=== PATIENT | male | born 1965 | race Caucasian/White ===

== ENCOUNTER 2017-05-21 15:41 | Emergency (ER) | payer SELFPAY ==
[2017-05-21 16:36] LABS: BASOPHILS 1.8 % (0-2); EOSINOPHILS 4.8 % (0-7); HEMATOCRIT 28.3 % (42.0-54.0); IMMATURE GRANULOCYTES 0.2 % (0-5); MCH 22.7 pg (26.0-34.0); MCHC 31.1 g/dL (31.0-37.0); MCV 73.1 fL (80.0-100.0); MEAN PLATELET VOLUME 9.4 fL (7.4-10.4); MONOCYTES 7.2 % (2-11); PLATELET COUNT 275 10x3/uL (130-400); RBC 3.87 10x6/uL (4.20-6.10); RDW 21.2 % (11.5-14.5)
[2017-05-21 16:44] LABS: HEMOGLOBIN 8.8 g/dL (13.5-17.5)
[2017-05-21 16:55] LABS: APPEARANCE CLEAR (CLEAR); BILIRUBIN NEGATIVE (NEGATIVE); COLOR YELLOW (YELLOW); GLUCOSE NEGATIVE (NEGATIVE); KETONE NEGATIVE (NEGATIVE); NITRITE NEGATIVE (NEGATIVE); PROTEIN NEGATIVE (NEGATIVE); SPECIFIC GRAVITY 1.005 (1.005-1.020); UDS - AMPHET NEGATIVE QUAL (NEGATIVE); UDS - BARB NEGATIVE QUAL (NEGATIVE); UDS - BENZO NEGATIVE QUAL (NEGATIVE); UDS - COCAINE NEGATIVE QUAL (NEGATIVE); UDS - OPIATE NEGATIVE QUAL (NEGATIVE); UDS - PCP NEGATIVE QUAL (NEGATIVE); UDS - THC NEGATIVE QUAL (NEGATIVE); UROBILINOGEN NORMAL (NORMAL)
[2017-05-21 16:59] LABS: ALBUMIN 3.3 g/dL (3.4-5.0); ALKALINE PHOSPHATASE 59 U/L (46-116); ALT (SGPT) 28 U/L (10-68); BILIRUBIN - TOTAL 0.18 mg/dL (0.2-1.3); CALC OSMOLALITY 279 mosm/kg (275-300); CALCIUM 8.4 mg/dL (8.5-10.1); CHLORIDE - SERUM 104 mmol/L (98-107); CREATININE - SERUM 0.7 mg/dL (0.6-1.3); GLUCOSE 81 mg/dL (74-106); POTASSIUM - SERUM 3.5 mmol/L (3.5-5.1); PROTEIN - SERUM 6.4 g/dL (6.4-8.2); SODIUM 142 mmol/L (136-145); UREA NITROGEN 8 mg/dL (7-18); eGFR NON AFRICAN AMERICAN > 90 mL/min (90-120)
[2017-05-22 01:11] LABS: HEMATOCRIT 28.3 % (42.0-54.0); HEMOGLOBIN 8.7 g/dL (13.5-17.5); LYMPHOCYTES 17.4 % (15-50); MCH 22.9 pg (26.0-34.0); MCHC 30.7 g/dL (31.0-37.0); MCV 74.5 fL (80.0-100.0); MEAN PLATELET VOLUME 8.4 fL (7.4-10.4); NEUTROPHILS 64.1 % (40-80); PLATELET COUNT 328 10x3/uL (130-400); RDW 21.8 % (11.5-14.5); WBC 5.3 10x3/uL (4.8-10.8)
== END 2017-05-22 05:53 | disposition short-term general hospital (02) ==
LOC: D.ER 15:41
PROVIDERS: Nurse Practitioner Family
DX: F33.9 Major depressive disorder, recurrent, unspecified (principal); R45.851 Suicidal ideations; F41.9 Anxiety disorder, unspecified; F10.10 Alcohol abuse, uncomplicated; D50.9 Iron deficiency anemia, unspecified

== ENCOUNTER 2017-08-19 14:58 | Emergency (ER) | payer MEDICAID ==
[2017-08-19 15:33] LABS: APPEARANCE CLEAR (CLEAR); BILIRUBIN NEGATIVE (NEGATIVE); COLOR YELLOW (YELLOW); GLUCOSE NEGATIVE (NEGATIVE); KETONE NEGATIVE (NEGATIVE); NITRITE NEGATIVE (NEGATIVE); PH 5.5 (5.0-6.0); PROTEIN NEGATIVE (NEGATIVE); SPECIFIC GRAVITY 1.015 (1.005-1.020); UROBILINOGEN NORMAL (NORMAL)
[2017-08-19 15:36] LABS: UDS - AMPHET NEGATIVE QUAL (NEGATIVE); UDS - BARB NEGATIVE QUAL (NEGATIVE); UDS - BENZO POSITIVE QUAL (NEGATIVE); UDS - COCAINE NEGATIVE QUAL (NEGATIVE); UDS - OPIATE POSITIVE QUAL (NEGATIVE); UDS - PCP NEGATIVE QUAL (NEGATIVE); UDS - THC NEGATIVE QUAL (NEGATIVE)
[2017-08-19 15:38] LABS: BASOPHILS 3.5 % (0-2); EOSINOPHILS 8.1 % (0-7); HEMATOCRIT 32.1 % (42.0-54.0); IMMATURE GRANULOCYTES 0.2 % (0-5); LYMPHOCYTES 27.9 % (15-50); MCH 23.8 pg (26.0-34.0); MCHC 31.2 g/dL (31.0-37.0); MCV 76.4 fL (80.0-100.0); MEAN PLATELET VOLUME 9.3 fL (7.4-10.4); MONOCYTES 9.6 % (2-11); NEUTROPHILS 50.7 % (40-80); PLATELET COUNT 343 10x3/uL (130-400); RDW 20.1 % (11.5-14.5); WBC 5.2 10x3/uL (4.8-10.8)
[2017-08-19 16:02] LABS: ALBUMIN 3.8 g/dL (3.4-5.0); ALKALINE PHOSPHATASE 77 U/L (46-116); ALT (SGPT) 34 U/L (10-68); BILIRUBIN - TOTAL 0.26 mg/dL (0.2-1.3); CALC OSMOLALITY 281 mosm/kg (275-300); CALCIUM 8.7 mg/dL (8.5-10.1); CARBON DIOXIDE 27.1 mmol/L (21.0-32.0); CHLORIDE - SERUM 105 mmol/L (98-107); CREATININE - SERUM 0.9 mg/dL (0.6-1.3); GLUCOSE 96 mg/dL (74-106); POTASSIUM - SERUM 3.7 mmol/L (3.5-5.1); PROTEIN - SERUM 7.4 g/dL (6.4-8.2); SODIUM 142 mmol/L (136-145); UREA NITROGEN 11 mg/dL (7-18); eGFR NON AFRICAN AMERICAN > 90 mL/min (90-120)
== END 2017-08-19 20:11 | disposition home or self-care (01) ==
LOC: D.ER 14:58
PROVIDERS: Emergency Medicine
DX: Z86.59 Personal history of other mental and behavioral disorders (principal); F33.9 Major depressive disorder, recurrent, unspecified; F10.129 Alcohol abuse with intoxication, unspecified; D64.9 Anemia, unspecified; F17.200 Nicotine dependence, unspecified, uncomplicated

== ENCOUNTER 2017-12-20 13:54 | Emergency (ER) | payer MEDICAID ==
[~2017-12-20] VITALS: Ht 172.7 cm; Wt 86.4 kg
[2017-12-20 14:04] VITALS: BP 119/74; Ht 172.7 cm; Wt 86.4 kg
[2017-12-20 14:24] LABS: EOSINOPHILS 4.8 % (0-7); HEMOGLOBIN 8.8 g/dL (13.5-17.5); IMMATURE GRANULOCYTES 0.2 % (0-5); MCHC 31.4 g/dL (31.0-37.0); MCV 73.3 fL (80.0-100.0); MEAN PLATELET VOLUME 9.6 fL (7.4-10.4); MONOCYTES 7.8 % (2-11); NEUTROPHILS 65.2 % (40-80); PLATELET COUNT 341 10x3/uL (130-400); RBC 3.82 10x6/uL (4.20-6.10); RDW 18.2 % (11.5-14.5)
[2017-12-20 14:41] LABS: ALBUMIN 3.6 g/dL (3.4-5.0); ALKALINE PHOSPHATASE 68 U/L (46-116); ALT (SGPT) 24 U/L (10-68); BILIRUBIN - TOTAL 0.47 mg/dL (0.2-1.3); CALC OSMOLALITY 275 mosm/kg (275-300); CALCIUM 9.2 mg/dL (8.5-10.1); CARBON DIOXIDE 27.4 mmol/L (21.0-32.0); CHLORIDE - SERUM 103 mmol/L (98-107); CREATININE - SERUM 0.8 mg/dL (0.6-1.3); GLUCOSE 104 mg/dL (74-106); POTASSIUM - SERUM 4.1 mmol/L (3.5-5.1); PROTEIN - SERUM 7.2 g/dL (6.4-8.2); SODIUM 138 mmol/L (136-145); UREA NITROGEN 12 mg/dL (7-18); eGFR NON AFRICAN AMERICAN > 90 mL/min (90-120)
== END 2017-12-20 17:30 | disposition home or self-care (01) ==
LOC: D.ER 13:54
PROVIDERS: Family Medicine
DX: R10.9 Unspecified abdominal pain (principal)

== ENCOUNTER 2018-10-23 18:53 | Inpatient (IN) | payer SELFPAY ==
[~2018-10-23] VITALS: Ht 172.7 cm; Wt 87.2 kg
[2018-10-23] VITALS (7 sets, daily range): BP systolic 96–116; BP diastolic 58–70
[2018-10-23] MEDS ORDERED: PEPCID (19:05)
[2018-10-23] MEDS ORDERED: CARAFATE1 G PO (19:05)
[2018-10-23] MEDS ORDERED: EFFEXOR75 MG (19:05)
--- NOTE | 2018-10-23 20:00 | NUR ---
PT SITTING UP ON STRETCHER, VITAL SIGNS STABLE AT THIS TIME. PT DENIES WANTING TO HARM HIMSELF AT THIS TIME, STATES HE IS DEPRESSED. DISCUSSED THAT WE NEEDED TO GET HIM MEDICALLY STABLE AND THAN HE WOULD HAVE DEPRESSION ADDRESSED, VERBALIZED UNDERSTANDING. PT IS WITHIN LINE OF SIGHT, DOORS OF ROOM OPENED, LIGHT IN ROOM ON.
[2018-10-23 20:16] LABS: BASOPHILS 1.8 % (0-2); EOSINOPHILS 7.5 % (0-7); HEMATOCRIT 26.3 % (42.0-54.0); HEMOGLOBIN 7.8 g/dL (13.5-17.5); IMMATURE GRANULOCYTES 0.1 % (0-5); LYMPHOCYTES 28.7 % (15-50); MCH 20.6 pg (26.0-34.0); MCHC 29.7 g/dL (31.0-37.0); MCV 69.4 fL (80.0-100.0); MEAN PLATELET VOLUME 10.3 fL (7.4-10.4); MONOCYTES 6.7 % (2-11); NEUTROPHILS 55.2 % (40-80); RBC 3.79 10x6/uL (4.20-6.10); RDW 23.1 % (11.5-14.5)
[2018-10-23 20:19] LABS: PLATELET COUNT 451 10x3/uL (130-400)
[2018-10-23 20:26] LABS: ALBUMIN 3.3 g/dL (3.4-5.0); ALKALINE PHOSPHATASE 131 U/L (46-116); ALT (SGPT) 19 U/L (10-68); CALC OSMOLALITY 292 mosm/kg (275-300); CALCIUM 8.1 mg/dL (8.5-10.1); CARBON DIOXIDE 25.4 mmol/L (21.0-32.0); CHLORIDE - SERUM 110 mmol/L (98-107); CREATININE - SERUM 0.8 mg/dL (0.6-1.3); GLUCOSE 87 mg/dL (74-106); MAGNESIUM - SERUM 2.5 mg/dL (1.8-2.4); POTASSIUM - SERUM 4.6 mmol/L (3.5-5.1); PROTEIN - SERUM 6.8 g/dL (6.4-8.2); SODIUM 148 mmol/L (136-145); UREA NITROGEN 12 mg/dL (7-18); eGFR NON AFRICAN AMERICAN > 90 mL/min (90-120)
--- NOTE | 2018-10-23 21:00 | NUR ---
PT RESTING QUIETLY, DENIES PAIN, STATES HE IS REALLY DEPRESSED, MD NOTIFIED.
[2018-10-23 21:26] LABS: APPEARANCE CLEAR (CLEAR); BILIRUBIN NEGATIVE (NEGATIVE); COLOR YELLOW (YELLOW); GLUCOSE NEGATIVE (NEGATIVE); KETONE NEGATIVE (NEGATIVE); NITRITE NEGATIVE (NEGATIVE); PROTEIN NEGATIVE (NEGATIVE); UROBILINOGEN NORMAL (NORMAL)
[2018-10-23 21:36] LABS: UDS - AMPHET NEGATIVE QUAL (NEGATIVE); UDS - BARB NEGATIVE QUAL (NEGATIVE); UDS - BENZO NEGATIVE QUAL (NEGATIVE); UDS - COCAINE NEGATIVE QUAL (NEGATIVE); UDS - OPIATE NEGATIVE QUAL (NEGATIVE); UDS - PCP NEGATIVE QUAL (NEGATIVE); UDS - THC NEGATIVE QUAL (NEGATIVE)
--- NOTE | 2018-10-23 22:02 | NUR ---
GUAC WAS NEGATIVE, REPEATED BY ANOTHER RN TO CONFIRM, NEGATIVE X 2.
--- NOTE | 2018-10-23 22:24 | NUR ---
CORRECTION SAYS THE GUAC IS SLIGHTLY POSITIVE.
[2018-10-24] VITALS (10 sets, daily range): BP systolic 112–152; BP diastolic 65–89; Ht 172.7 cm; Wt 87.2 kg
--- NOTE | 2018-10-24 00:30 | NUR ---
PATIENT IS BEING CLOSELY MONITORED, STATES HE DOESN'T WANT TO HARM HIMSELF, HE IS JUST VERY DEPRESSED. REPORT GIVEN TO VANNESSA MALDONADO.
--- NOTE | 2018-10-24 03:41 | NUR ---
PROTONIX DRIP RESTARTED, PATIENT MOOD PLEASANT. PATIENT STATES HE IS NOT CURRENTLY FEELING SUICIDAL BUT JUST FELT LIKE HE WAS IN A "VERY DARK PLACE WITH NO ONE TO TALK TO."
--- NOTE | 2018-10-24 07:14 | NUR ---
Pt report received at bedside from JOEL Morillo. Pt denies further needs at this time.
--- NOTE | 2018-10-24 08:52 | NUR ---
Pt resting in bed. Pt shows no signs of distress at this time. Pt denies further needs at this time.
[2018-10-24 09:02] LABS: EOSINOPHILS 7.6 % (0-7); HEMATOCRIT 27.5 % (42.0-54.0); HEMOGLOBIN 8.2 g/dL (13.5-17.5); IMMATURE GRANULOCYTES 0.1 % (0-5); LYMPHOCYTES 13.5 % (15-50); MCH 21.2 pg (26.0-34.0); MCHC 29.8 g/dL (31.0-37.0); MCV 71.1 fL (80.0-100.0); MEAN PLATELET VOLUME 9.4 fL (7.4-10.4); MONOCYTES 6.6 % (2-11); NEUTROPHILS 71.2 % (40-80); RBC 3.87 10x6/uL (4.20-6.10); RDW 22.7 % (11.5-14.5); WBC 7.3 10x3/uL (4.8-10.8)
[2018-10-24 09:05] LABS: PLATELET COUNT 343 10x3/uL (130-400)
[2018-10-24 09:18] LABS: % SATURATION 22 % (15-55); IRON 87 ug/dl (35-150); TOTAL IRON BIND CAPACITY 379 ug/dl (260-445); UNSAT IRON BIND CAPACITY 292 ug/dl (150-375)
[2018-10-24 09:19] LABS: APTT 26.2 SECONDS (22.8-39.4); INR 1.12 (0.85-1.17); PROTIME 13.9 SECONDS (11.6-15.0)
[2018-10-24 09:30] LABS: ALBUMIN 2.9 g/dL (3.4-5.0); ALKALINE PHOSPHATASE 129 U/L (46-116); ALT (SGPT) 15 U/L (10-68); BILIRUBIN - TOTAL 0.63 mg/dL (0.2-1.3); CALC OSMOLALITY 284 mosm/kg (275-300); CARBON DIOXIDE 26.5 mmol/L (21.0-32.0); CHLORIDE - SERUM 108 mmol/L (98-107); CREATININE - SERUM 0.7 mg/dL (0.6-1.3); FERRITIN 6 ng/mL (3-244); GLUCOSE 84 mg/dL (74-106); POTASSIUM - SERUM 4.1 mmol/L (3.5-5.1); PROTEIN - SERUM 6.9 g/dL (6.4-8.2); SODIUM 143 mmol/L (136-145); UREA NITROGEN 15 mg/dL (7-18); eGFR NON AFRICAN AMERICAN > 90 mL/min (90-120)
--- NOTE | 2018-10-24 10:03 | NUR ---
Pt resting in bed with eyes closed. Respirations even and unlabored. IV infusing without difficulty. Pt denies any needs.
--- NOTE | 2018-10-24 11:36 | NUR ---
Pt resting in bed. Pt shows no signs of distress.
--- NOTE | 2018-10-24 14:35 | NUR ---
PT ARRIVED ON UNIT VIA WHEELCHAIR, HOOKED TO MONITORS, ALERT AND ORIENTED, ALL PPP, VSS, CALL LIGHT IN REACH
--- NOTE | 2018-10-24 15:45 | NUR ---
DR. GUEVARA AT BEDSIDE, EGD PERFORMED, PT TOLERATED WELL
--- NOTE | 2018-10-24 19:15 | NUR ---
REC'D TO CARE, STREET PHOTOGRAPHER PER FLOWSHEET. PT ALERT AND ORIENTED. VSS. PT GIVEN FRESH WATER, DENIES OTHER NEEDS. ALARMS ON AND C/L IN REACH.
--- NOTE | 2018-10-24 21:00 | NUR ---
NO VISITORS, PT GIVEN SANDWICH TRAY PER REQUEST. VSS. WEANING FIO2 PER ORDERS. C/L IN REACH.
--- NOTE | 2018-10-24 23:30 | NUR ---
REASSESSMENT PER FLOWSHEET, NO ACUTE CHANGES. VSS. PT ON RA. DENIES NEEDS. C/L IN REACH.
[2018-10-25] VITALS (21 sets, daily range): BP systolic 117–156; BP diastolic 70–92
--- NOTE | 2018-10-25 01:15 | NUR ---
RESTING WITH EYES CLOSED, VSS. NO SIGN OF DISTRESS.
--- NOTE | 2018-10-25 03:15 | NUR ---
REASSESSMENT PER FLOWSHEET, NO ACUTE CHANGES.
[2018-10-25 04:32] LABS: BASOPHILS 0.9 % (0-2); EOSINOPHILS 9.6 % (0-7); HEMATOCRIT 26.9 % (42.0-54.0); IMMATURE GRANULOCYTES 0.2 % (0-5); LYMPHOCYTES 23.2 % (15-50); MCH 21.1 pg (26.0-34.0); MCHC 29.7 g/dL (31.0-37.0); MCV 70.8 fL (80.0-100.0); MEAN PLATELET VOLUME 9.2 fL (7.4-10.4); MONOCYTES 10.7 % (2-11); NEUTROPHILS 55.4 % (40-80); PLATELET COUNT 313 10x3/uL (130-400); RDW 21.8 % (11.5-14.5); WBC 6.4 10x3/uL (4.8-10.8)
[2018-10-25 04:52] LABS: ALBUMIN 2.4 g/dL (3.4-5.0); ALKALINE PHOSPHATASE 115 U/L (46-116); ALT (SGPT) 14 U/L (10-68); CALC OSMOLALITY 284 mosm/kg (275-300); CALCIUM 8.1 mg/dL (8.5-10.1); CARBON DIOXIDE 27.3 mmol/L (21.0-32.0); CHLORIDE - SERUM 109 mmol/L (98-107); CREATININE - SERUM 0.6 mg/dL (0.6-1.3); GLUCOSE 100 mg/dL (74-106); POTASSIUM - SERUM 4.1 mmol/L (3.5-5.1); SODIUM 143 mmol/L (136-145); UREA NITROGEN 13 mg/dL (7-18); eGFR NON AFRICAN AMERICAN > 90 mL/min (90-120)
--- NOTE | 2018-10-25 07:10 | NUR ---
REPORT RECIEVED FROM HUMAN RESOURCES DISTRICT MANAGER AND PATIENT CARE ASSUMED. PATIETN LAYING ON BACK WITH EYES CLOSED AND BREATHING EVENLY.VSS. WILL CONTINUE WITH PLAN OF CARE. SR UP X 2 BED IN LOW POSITION AND CALL LIGHT IN REACH.
--- NOTE | 2018-10-25 08:28 | CN ---
PATIENT NAME:MO OVIEDO MEDICAL RECORD: [id number] : 65 LOCATION:[id number] ADMIT DATE: 10/23/18 ACCOUNT: [id number] CONSULTING PHYSICIAN: GLORIA SNEED MD REFERRING PHYSICIAN: HARDIK SANCHEZ MD DATE OF CONSULTATION: 10/24/2018 PSYCHIATRIC CONSULTATION IDENTIFYING DATA: The patient is 53 years old and he is admitted to the hospital on a voluntary basis. CHIEF COMPLAINT: Overdose. HISTORY OF PRESENT ILLNESS: The patient has a long history of depression. He has been experiencing numerous neurovegetative depressive symptoms and ongoing issues with family and social circumstances. He is also an alcoholic and he went through a treatment program at [facility] recently and stayed sober for about a month and a half until a couple of days ago at which time, he began drinking. He became more despondent, says he took about 15 Klonopin tablets and did so with the intention of killing himself. In the Emergency Room, he repeated these statements, but his urine drug screen is negative for a benzodiazepine, which is curious, he insists he did take these. I do not see any reason why he would be not telling the truth about this. It seems very genuine when he is saying this and I did not tell him that the urine drug screen did not have the benzodiazepine in it. He continues to report numerous depressive symptoms. He says he is not wanting to hurt himself, but he does so in a way that is not very comforting. He pauses, stares off into space for a few seconds and then says he guesses he is not suicidal. It was not at all comfortable. He is otherwise oriented, has a depressed mood and there is no evidence of cognitive impairment or psychotic symptoms. ASSESSMENT: 1. Alcohol abuse. 2. Status post overdose by his report. 3. Major depression. PLAN: At this time, I think the patient requires confinement to an inpatient psychiatric unit for medication management. He does not want to go back to [facility]. I did recommend that he return to once discharged from the psychiatric facility. He has been taking the same antidepressant for a long time. I know he is an ongoing drinker, but he has been sober for a month and a half and he says the Prozac just simply is not working. I would recommend medication management and a little bit longer period of observation in a structured environment to ensure that he is not acutely dangerous. TRANSINT:[id number] Voice Confirmation ID: [id number] DOCUMENT ID: [id number] CONSULT REPORT [id number] MO OVIEDO PETER MD at 0828 CC: [id number] DICTATION DATE: 10/24/[address] SUPERINTENDENT: 10/24/18 1554 ADM IN [place] [id number] [place] [id number]
--- NOTE | 2018-10-25 08:39 | NUR ---
PATIENT AWAKE, ALERT AND ORIENTED X 4. PATIENT SITTING UP IN BED EATING BREAKFAST. NEW PROTONIX DRIP HUNG AND HABITROL PATCH APPLIED TO RT SHOULDER. PATIENT DENIES ANY NEEDS OR PAIN. AESSMENT COMPLETED. WILL CONTINUE WITH PLAN OF CARE.
[2018-10-25 11:21] LABS: FOLATE (FOLIC ACID) - SERUM >20.0 ng/mL (>3.0)
--- NOTE | 2018-10-25 12:30 | NUR ---
RODRIGUEZ CATHETER REMOVED WITHOUT DIFFICULTY. PATIENT FINISHED LUNCH AND DENIES ANY NEEDS OR PAIN. WILL CONTINUE TO MONITOR. SR UP X 2 BED IN LOW POSTION AND CALL LIGHT IN REACH.
--- NOTE | 2018-10-25 16:55 | NUR ---
DR CHAVARRIA , ANESTHESIA AND EGD TEAM IN ROOM. EGD PERFORMED. DIAGNOSIS OF HEALING SARWAT ANNE TEAR AT GE JUNCTION. VSS. PATIENT TOLERATED WELL. PATIENT RESTING COMFORTABLY WITH EYES CLOSED AND BREATHING EVENLY. SR UP X 2 BED IN LOW POSITION AND CALL LIGHT IN REACH.
--- NOTE | 2018-10-25 19:25 | NUR ---
REC'D TO CARE, RECORDER HELPER GRAVITY PROSPECTING PER FLOWSHEET. PT AWAKE, WATCHING TV. VSS. PT WITH TRANSFER ORDERS, AWAITING PLACEMENT. DENIES ANY SUICIDAL IDEATION. ALARMS ON AND C/L IN REACH.
--- NOTE | 2018-10-25 22:16 | NUR ---
PT UP TO BSC, LARGE LOOSE, LIGHT BROWN BM. FELIBERTO-CARE PER PT. BACK TO BED.
--- NOTE | 2018-10-25 23:30 | NUR ---
VSS. PT GIVEN CRACKERS PER REQUEST. DENIES OTHER NEEDS.
--- NOTE | 2018-10-26 02:00 | NUR ---
RECENT PT PROGRESS NOTES FAXED TO TRANSFER CENTER.
[2018-10-26 03:30] VITALS: BP 120/69
[2018-10-26 03:59] LABS: BASOPHILS 0.8 % (0-2); EOSINOPHILS 10.3 % (0-7); HEMATOCRIT 27.9 % (42.0-54.0); HEMOGLOBIN 8.3 g/dL (13.5-17.5); IMMATURE GRANULOCYTES 0.1 % (0-5); MCH 21.1 pg (26.0-34.0); MCHC 29.7 g/dL (31.0-37.0); MEAN PLATELET VOLUME 9.3 fL (7.4-10.4); MONOCYTES 10.9 % (2-11); NEUTROPHILS 54.9 % (40-80); PLATELET COUNT 324 10x3/uL (130-400); RBC 3.93 10x6/uL (4.20-6.10); RDW 22.4 % (11.5-14.5)
[2018-10-26 04:19] LABS: ALBUMIN 2.7 g/dL (3.4-5.0); ALKALINE PHOSPHATASE 110 U/L (46-116); ALT (SGPT) 11 U/L (10-68); BILIRUBIN - TOTAL 0.17 mg/dL (0.2-1.3); CALC OSMOLALITY 283 mosm/kg (275-300); CALCIUM 8.4 mg/dL (8.5-10.1); CHLORIDE - SERUM 109 mmol/L (98-107); CREATININE - SERUM 0.6 mg/dL (0.6-1.3); GLUCOSE 98 mg/dL (74-106); POTASSIUM - SERUM 3.6 mmol/L (3.5-5.1); PROTEIN - SERUM 6.4 g/dL (6.4-8.2); SODIUM 143 mmol/L (136-145); UREA NITROGEN 11 mg/dL (7-18); eGFR NON AFRICAN AMERICAN > 90 mL/min (90-120)
[2018-10-26 07:00] VITALS: BP 138/80
[2018-10-26 11:00] VITALS: BP 142/87
--- NOTE | 2018-10-26 12:35 | MORECARE ---
CASE MANAGEMENT DISCHARGE SUMMARY PATIENT: MO OVIEDO UNIT: [id number] ADM DATE: 10/23/18 AGE: 53 : 65 SEX: M ROOM/BED: D.2315 AUTHOR: LALO BADILLO PHYSICIAN: REFERRING PHYSICIAN: HARDIK SANCHEZ MD DATE OF SERVICE: 10/26/18 Discharge Plan Patient Name: MO OVIEDO [facility] 1965 Planned Disposition: Psych facility Anticipated Discharge Date: Discharge Date: Expected LOS: Initial Reviewer: [email or web address] Initial Review Date: 10/25/2018 Generated: 10/26/18 1:34 pm External Providers External Provider: [facility] Next Contact Date: Service Request Date: Service Type: Resolution: Reviewer: Comments: Patient Name: MO OVIEDO Page [phone] at 1235 All edits/amendments must be made on the electronic document DICTATION DATE: 10/26/18 1234 TEA BLENDER: [place] 10/26/18 1234 RPT#: [id number] DC DATE: STATUS: ADM IN [facility] [address] [place] [address] END OF REPORT
--- NOTE | 2018-10-26 12:43 | MORECARE ---
CASE MANAGEMENT DISCHARGE SUMMARY PATIENT: MO OVIEDO UNIT: [id number] ADM DATE: 10/23/18 AGE: 53 : 65 SEX: M ROOM/BED: D.2315 AUTHOR: LALO BADILLO PHYSICIAN: REFERRING PHYSICIAN: HARDIK SANCHEZ MD DATE OF SERVICE: 10/26/18 Discharge Plan Patient Name: MO OVIEDO [facility] : 1965 Planned Disposition: Psych facility Anticipated Discharge Date: Discharge Date: Expected LOS: Initial Reviewer: [email or web address] Initial Review Date: 10/25/2018 Generated: 10/26/18 1:42 pm DCPIA - Discharge Planning Initial Assessment Updated by [email or web address]: Marla Burger on 10/26/18 12:37 pm * Is the patient Alert and Oriented? Yes * How many steps to enter\exit or inside your home? * PCP No PCP * Pharmacy [facility] * Preadmission Environment Home with Family * ADLs Independent * Equipment None * List name and contact numbers for known caregivers / representatives who currently or will assist patient after discharge: ERIKA OVIEDO - - [phone] * Verbal permission to speak to the caregivers and representatives has been obtained from the patient. Yes * Community resources currently utilized None * Additional services required to return to the preadmission environment? No * Can the patient safely return to the preadmission environment? Yes * Has this patient been hospitalized within the prior 30 days at any hospital? No Last DP export: 10/26/18 11:35 a Patient Name: MO OVIEDO Page 85472 at 1243 All edits/amendments must be made on the electronic document DICTATION DATE: 10/26/18 124 SEPHORA OPERATIONS CONSULTANT: [place] 10/26/18 1242 RPT#: [id number] DC DATE: STATUS: ADM IN [facility] [address] [place] [address] END OF REPORT
--- NOTE | 2018-10-26 13:12 | MORECARE ---
CASE MANAGEMENT DISCHARGE SUMMARY PATIENT: MO OVIEDO UNIT: [id number] ADM DATE: 10/23/18 AGE: 53 : 65 SEX: M ROOM/BED: D.2315 AUTHOR: ABY,DOC PHYSICIAN: REFERRING PHYSICIAN: HARDIK SANCHEZ MD DATE OF SERVICE: 10/26/18 Discharge Plan Patient Name: MO OVIEDO Facility: [facility]:[place] : 1965 Planned Disposition: Psych facility Anticipated Discharge Date: Discharge Date: Expected LOS: Initial Reviewer: [email or web address] Initial Review Date: 10/25/2018 Generated: 10/26/18 2:12 pm Comments DCP- Discharge Planning Updated by [email or web address]: Marla Burger on 10/26/18 12:[address] Late Entry 10/25/18 @ 1530 Patient Name: MO OVIEDO Admission Status: ER Accout number: [id number] Admission Date: 10-23-2018 : 1965 Admission Diagnosis:POISONING BY BENZODIAZEPINES, INTENTIONAL SELF-HARM, IN Attending: HARDIK SANCHEZ Current LOS: 3 Anticipated DC Date: Planned Disposition: Psych facility Primary Insurance: UNINSURED DISCOUNT PLAN Discharge Planning Comments: CM met with patient at bedside. He states he lives at home with his . He states he plans to return there post discharge. He states that he is willing to go to inpatient psychiatric facility upon discharge from our facility. He is wanting to seek help. He is currently uninsured [employer] has spoke with him and he is over income for Medicaid. CM contacted transfer center and faxed records. CM awaiting placement for psych. CM will continue to follow and assist as needed with discharge planning needs. Alumni Secretary: Marla Burger DCPIA - Discharge Planning Initial Assessment Updated by [email or web address]: Marla Burger on 10/26/18 12:37 pm * Is the patient Alert and Oriented? Yes * How many steps to enter\exit or inside your home? * PCP No PCP * Pharmacy [facility] * Preadmission Environment Home with Family * ADLs Independent * Equipment None * List name and contact numbers for known caregivers / representatives who currently or will assist patient after discharge: ERIKA OVIEDO - - [phone] * Verbal permission to speak to the caregivers and representatives has been obtained from the patient. Yes * Community resources currently utilized None * Additional services required to return to the preadmission environment? No * Can the patient safely return to the preadmission environment? Yes * Has this patient been hospitalized within the prior 30 days at any hospital? No Last DP export: 10/26/18 11:42 a Patient Name: MO OVIEDO Page [phone] at 1312 All edits/amendments must be made on the electronic document DICTATION DATE: 10/26/18 131 HOSPITAL SUPERINTENDENT: [place] 10/26/18 1312 RPT#: [id number] DC DATE: STATUS: ADM IN [facility] [address] [place] [address] END OF REPORT
[2018-10-26 15:00] VITALS: BP 133/81
[2018-10-26 19:30] VITALS: BP 125/70
--- NOTE | 2018-10-26 19:30 | NUR ---
GREETED PATIENT AND INTRODUCED MYSELF HIS NURSE FOR THE EVENING. PATIENT IS LAYING IN BED IN SUPINE POSITION. HOB AT 30 DEGREES. RESPIRATIONS EVEN. NO SIGNS OF DISTRESS. PATIENT DENIES ANY NEEDS AT THIS TIME. CALL LIGHT IN REACH.
--- NOTE | 2018-10-26 21:30 | NUR ---
PATIENT AWAKE LAYING IN BED IN SUPINE POSITION. HOB AT 20 DEGREES. RESPIRATIONS EVEN. VITAL SIGNS STABLE. NO S/S OF DISTRESS. PATIENT DENIES ANY NEEDS AT THIS TIME. SR UP X 2. BED IN LOWEST POSITION. CALL LIGHT IN REACH
--- NOTE | 2018-10-26 23:13 | NUR ---
PATIENT ASLEEP AND RESTING QUIETLY. HOB AT 20 DEGREES. RESPIRATIONS EVEN. NO SIGNS OF DISTRESS. CALL LIGHT IN REACH.
[2018-10-26 23:30] VITALS: BP 144/84
--- NOTE | 2018-10-27 01:09 | NUR ---
PATIENT RESTING QUIETLY LAYING ON RIGHT SIDE. RESPIRATIONS EVEN. NO S/S OF DISTRESS. SR UP X 2 AND BED AT LOWEST POSITION. CALL LIGHT IN REACH.
[2018-10-27 02:41] LABS: BASOPHILS 0.7 % (0-2); EOSINOPHILS 11.9 % (0-7); HEMATOCRIT 28.3 % (42.0-54.0); HEMOGLOBIN 8.4 g/dL (13.5-17.5); IMMATURE GRANULOCYTES 0.3 % (0-5); LYMPHOCYTES 28.8 % (15-50); MCH 21.2 pg (26.0-34.0); MCHC 29.7 g/dL (31.0-37.0); MCV 71.5 fL (80.0-100.0); MONOCYTES 12.4 % (2-11); NEUTROPHILS 45.9 % (40-80); PLATELET COUNT 321 10x3/uL (130-400); RBC 3.96 10x6/uL (4.20-6.10); RDW 22.7 % (11.5-14.5); WBC 7.7 10x3/uL (4.8-10.8)
[2018-10-27 02:53] LABS: ALBUMIN 2.7 g/dL (3.4-5.0); ALKALINE PHOSPHATASE 100 U/L (46-116); ALT (SGPT) 14 U/L (10-68); BILIRUBIN - TOTAL 0.16 mg/dL (0.2-1.3); CALC OSMOLALITY 281 mosm/kg (275-300); CALCIUM 8.4 mg/dL (8.5-10.1); CARBON DIOXIDE 27.7 mmol/L (21.0-32.0); CHLORIDE - SERUM 107 mmol/L (98-107); CREATININE - SERUM 0.7 mg/dL (0.6-1.3); GLUCOSE 98 mg/dL (74-106); POTASSIUM - SERUM 3.8 mmol/L (3.5-5.1); PROTEIN - SERUM 6.4 g/dL (6.4-8.2); SODIUM 142 mmol/L (136-145); UREA NITROGEN 9 mg/dL (7-18); eGFR NON AFRICAN AMERICAN > 90 mL/min (90-120)
--- NOTE | 2018-10-27 03:24 | NUR ---
PATIENT ASLEEP AND RESTING QUIETLY LAYING ON RIGHT SIDE. HOB AT 20 DEGREES. RESPIRATIONS EVEN. NO S/S OF DISTRESS. SR UP X 2. BED AT LOWEST POSITION. CALL LIGHT IN REACH.
[2018-10-27 03:30] VITALS: BP 142/94
--- NOTE | 2018-10-27 04:04 | NUR ---
SPOKE WITH KATIE BOO GRINDER MACHINE SETTER OF [facility] CONCERNING TRANSFER TO THEIR FACILITY. KATIE SAID THAT SHE WOULD CALL BACK TO OUR FACILITY IF THEY ARE ABLE TO TAKE THE PATIENT.
--- NOTE | 2018-10-27 05:19 | NUR ---
PATIENT RESTING QUIETLY. LAYING ON LEFT SIDE. RESPIRATIONS EVEN. NO S/S OF DISTRESS. SR UP X 2. BED IN LOWEST POSITION. CALL LIGHT IN REACH.
--- NOTE | 2018-10-27 05:44 | NUR ---
SPOKE WITH MARISA IN THE TRANSFER CENTER AND HE CALLED TO TELL ME THAT [facility] HAD ALSO DENIED PATIENT.
[2018-10-27 07:00] VITALS: BP 124/73
--- NOTE | 2018-10-27 09:36 | NUR ---
TRANSFER CENTER CALLED WITH UPDATE FOR TRANSFERS TODAY
[2018-10-27 11:00] VITALS: BP 123/81
--- NOTE | 2018-10-27 12:52 | NUR ---
PATIENT INQUIRING ABOUT PLACEMENT, THIS NURSE CONTACTED CASE MGT., DR. SANCHEZ AND RECD. AN ORDER TO RECONSULT PHYCH. FOR MEDICATION ADJUSTMENT AND/OR CONTINUED NEED FOR PLACEMENT IN INPATIENT PSYCH..
[2018-10-27 15:00] VITALS: BP 110/56
[2018-10-27 19:00] VITALS: BP 121/70
--- NOTE | 2018-10-27 20:45 | NUR ---
TRANSFER CENTER CALLED, UPDATED REGARDING PT CONTINUED NEED FOR PSYCH PLACEMENT, NO BEDS AVAILABLE.
--- NOTE | 2018-10-27 21:36 | NUR ---
SALTINE CRACKERS PROVIDED PER REQUEST, PT DENIES ANY OTHER NEEDS AT THIS TIME, VSS.
[2018-10-27 23:00] VITALS: BP 126/77
--- NOTE | 2018-10-28 00:36 | NUR ---
[facility] CALLED VIA TRANSFER CENTER REGARDING POSSIBLE ACCEPTANCE, UPDATED LAB AND NOTES FAXED TO TRANSFER CENTER ([phone]) REQUESTED.
--- NOTE | 2018-10-28 01:54 | NUR ---
PT RESTING IN BED WITH EYES CLOSED, VSS, CONT POC.
[2018-10-28 02:46] LABS: BASOPHILS 0.9 % (0-2); EOSINOPHILS 10.5 % (0-7); HEMOGLOBIN 8.5 g/dL (13.5-17.5); IMMATURE GRANULOCYTES 0.2 % (0-5); LYMPHOCYTES 25.5 % (15-50); MCH 21.9 pg (26.0-34.0); MCHC 30.4 g/dL (31.0-37.0); MCV 72.2 fL (80.0-100.0); MEAN PLATELET VOLUME 9.5 fL (7.4-10.4); MONOCYTES 13.6 % (2-11); NEUTROPHILS 49.3 % (40-80); PLATELET COUNT 288 10x3/uL (130-400); RBC 3.88 10x6/uL (4.20-6.10); RDW 23.5 % (11.5-14.5)
[2018-10-28 03:00] VITALS: BP 92/69
[2018-10-28 03:03] LABS: ALBUMIN 2.8 g/dL (3.4-5.0); ALKALINE PHOSPHATASE 93 U/L (46-116); ALT (SGPT) 13 U/L (10-68); CALC OSMOLALITY 278 mosm/kg (275-300); CALCIUM 8.7 mg/dL (8.5-10.1); CARBON DIOXIDE 27.3 mmol/L (21.0-32.0); CHLORIDE - SERUM 106 mmol/L (98-107); CREATININE - SERUM 0.6 mg/dL (0.6-1.3); GLUCOSE 96 mg/dL (74-106); POTASSIUM - SERUM 3.6 mmol/L (3.5-5.1); PROTEIN - SERUM 6.4 g/dL (6.4-8.2); SODIUM 140 mmol/L (136-145); UREA NITROGEN 12 mg/dL (7-18); eGFR NON AFRICAN AMERICAN > 90 mL/min (90-120)
--- NOTE | 2018-10-28 04:08 | NUR ---
TRANSFER CENTER TEAM CALLED, TALKED WITH [facility] ALSO-ALL QUESTIONS ANSWERED, STATE THEY WILL GET BACK REGARDING ACCEPTANCE OR NOT.
--- NOTE | 2018-10-28 05:06 | NUR ---
AM LABS REVIEWED, NOTHING TO TREAT PER ELECTROLYTE PROTOCOL.
[2018-10-28 07:00] VITALS: BP 137/82
--- NOTE | 2018-10-28 10:45 | NUR ---
PATIENT WANTS TO GO HOME, NURSE CALLED MD. MARSH. NEW ORDER, ALSO CALLED PSYCH. TO REQUEST DR. DUMONT SEE ON ROUNDS. NOTIFIED PATIENT AND HE AGREES TO HOLD LEAVING FOR NOW. AT NO POINT HAS THIS PATIENT BEEN UNREASONABLE WITH THIS NURSE, HE HAS BEEN PATIENT AND AGREEABLE WITH CARE. PATIENT REQUEST PIV BE REMOVED,
[2018-10-28] MEDS ORDERED: PROTONIX40 MG PO (13:14)
--- NOTE | 2018-10-28 13:51 | NUR ---
PT DISCHARGED HOME AT THIS TIME VIA PERSONAL VEHICLE ACCOMPANIED BY . LEFT WITH ALL PERSONAL ITEMS AND DISCHARGE PAPERWORK. PT IS AWARE HE NEEDS TO MAKE AN APPOINTMENT WITH PCP TOMORROW, AND STATES HE IS ABLE TO OBTAIN DISCHARGE MEDICATIONS. DENIES ANY QUESTIONS OR CONCERNS. PT STATES HE IS NOT SUICIDAL, HAS NO THOUGHTS OR CONCIDERATIONS TO HARM SELF, AND HAS NO PLAN TO HARM SELF. PHYSICIANS HAVE CLEARED PT TO DISCHARGE HOME. NO ACUTE DISTRESS NOTED. NO FURTHER ACTIONS.
--- NOTE | 2018-10-29 17:43 | MORECARE ---
CASE MANAGEMENT DISCHARGE SUMMARY PATIENT: MO OVIEDO UNIT: [id number] ADM DATE: 10/23/18 AGE: 53 : 65 SEX: M ROOM/BED: D.2315 AUTHOR: ABY,DOC PHYSICIAN: REFERRING PHYSICIAN: HARDIK SANCHEZ MD DATE OF SERVICE: 10/29/18 Discharge Plan Patient Name: MO OVIEDO Facility: [facility]:[place] : 1965 Planned Disposition: Psych facility Anticipated Discharge Date: Discharge Date: 10/28/2018 Expected LOS: Initial Reviewer: [email or web address] Initial Review Date: 10/25/2018 Generated: 10/29/18 6:43 pm Comments DCP- Discharge Planning Updated by [email or web address]: Marla Burger on 10/26/18 12:[address] Late Entry 10/25/18 @ 1530 Patient Name: MO OVIEDO Admission Status: ER Accout number: [id number] Admission Date: 10-23-2018 : 1965 Admission Diagnosis:POISONING BY BENZODIAZEPINES, INTENTIONAL SELF-HARM, IN Attending: HARDIK SANCHEZ Current LOS: 3 Anticipated DC Date: Planned Disposition: Psych facility Primary Insurance: UNINSURED DISCOUNT PLAN Discharge Planning Comments: CM met with patient at bedside. He states he lives at home with his . He states he plans to return there post discharge. He states that he is willing to go to inpatient psychiatric facility upon discharge from our facility. He is wanting to seek help. He is currently uninsured [employer] has spoke with him and he is over income for Medicaid. CM contacted transfer center and faxed records. CM awaiting placement for psych. CM will continue to follow and assist as needed with discharge planning needs. Print Shop Stenographer: Marla Burger DCPIA - Discharge Planning Initial Assessment Updated by [email or web address]: Marla Burger on 10/26/18 12:37 pm * Is the patient Alert and Oriented? Yes * How many steps to enter\exit or inside your home? * PCP No PCP * Pharmacy [facility] * Preadmission Environment Home with Family * ADLs Independent * Equipment None * List name and contact numbers for known caregivers / representatives who currently or will assist patient after discharge: ERIKA OVIEDO - - [phone] * Verbal permission to speak to the caregivers and representatives has been obtained from the patient. Yes * Community resources currently utilized None * Additional services required to return to the preadmission environment? No * Can the patient safely return to the preadmission environment? Yes * Has this patient been hospitalized within the prior 30 days at any hospital? No Last DP export: 10/26/18 12:12 p Patient Name: MO OVIEDO Page [id number] at 1743 All edits/amendments must be made on the electronic document DICTATION DATE: 10/29/181742 UNIVERSITY MANAGER: [place] 10/29/181742 RPT#: [id number] DC DATE:10/28/18 STATUS: DIS IN [facility] [address] [place] [address] END OF REPORT
--- NOTE | 2018-10-31 12:57 | PN ---
PATIENT:MO OVIEDO MEDICAL RECORD: [id number] [facility] ADMISSION DATE: 10/23/18 PROGRESS NOTE DATE OF SERVICE: 10/28/2018 SUBJECTIVE: The patient's case was discussed with staff. He has no new complaint. OBJECTIVE: The patient has euthymic mood and no thoughts of harming himself or others. He does not want to go to a psychiatric hospital and it has now been 5 days since his overdose, which occurred while he was intoxicated. I have evaluated his mood state and no longer think he is suicidal. I also think that his depression was largely situationally driven and induced by the alcohol. ASSESSMENT: Alcohol dependence versus abuse. PLAN: The patient may be discharged to home. Follow up should be with a substance abuse program on an outpatient basis. He is refusing inpatient care for either his mood state or alcohol use. TRANSINT:[id number] Voice Confirmation ID: [id number] DOCUMENT ID: [id number] GLORIA SNEED MD at 1257 CC: [id number] DICTATION DATE: 10/28/18 1213 CONFERENCE SERVICE COORDINATOR: 10/28/18 1351 DIS IN 10/28/18 [facility] [address] [place] [address]
== END 2018-10-28 13:51 | disposition home or self-care (01) | DRG 917 ==
LOC: D.ER 18:53 → D.EDHOLD 23:04 → D.ICU 23:04
PROVIDERS: Family Medicine; ADMIT Internal Medicine Nephrology; ATTEND Internal Medicine Nephrology
PROC: 0DB68ZX Excision of Stomach, Via Natural or Artificial Opening Endoscopic, Diagnostic (ICD-10-PCS; principal; 2018-10-25)
DX: T42.4X2A Poisoning by benzodiazepines, intentional self-harm, initial encounter (principal); K22.11 Ulcer of esophagus with bleeding; K25.4 Chronic or unspecified gastric ulcer with hemorrhage; R45.851 Suicidal ideations; E87.0 Hyperosmolality and hypernatremia; F17.203 Nicotine dependence unspecified, with withdrawal; F10.129 Alcohol abuse with intoxication, unspecified; F32.9 Major depressive disorder, single episode, unspecified; D50.9 Iron deficiency anemia, unspecified; K59.09 Other constipation; F10.10 Alcohol abuse, uncomplicated; Z98.84 Bariatric surgery status

== ENCOUNTER 2018-11-12 12:29 | Emergency (ER) | payer SELFPAY ==
[~2018-11-12] VITALS: Ht 172.7 cm; Wt 86.4 kg
[~2018-11-12 12:29] MED LIST: CARAFATE1 G PO; EFFEXOR75 MG; PEPCID; PROTONIX40 MG PO
[2018-11-12 12:31] VITALS: Ht 172.7 cm; Wt 86.4 kg
[2018-11-12 14:43] LABS: BASOPHILS 2.3 % (0-2); EOSINOPHILS 7.5 % (0-7); HEMATOCRIT 35.8 % (42.0-54.0); HEMOGLOBIN 10.9 g/dL (13.5-17.5); IMMATURE GRANULOCYTES 0.2 % (0-5); MCH 23.7 pg (26.0-34.0); MCHC 30.4 g/dL (31.0-37.0); MCV 77.8 fL (80.0-100.0); MEAN PLATELET VOLUME 10.1 fL (7.4-10.4); MONOCYTES 10.8 % (2-11); NEUTROPHILS 39.2 % (40-80); PLATELET COUNT 327 10x3/uL (130-400); WBC 5.2 10x3/uL (4.8-10.8)
[2018-11-12 15:06] LABS: ALBUMIN 3.4 g/dL (3.4-5.0); ALKALINE PHOSPHATASE 94 U/L (46-116); ALT (SGPT) 21 U/L (10-68); BILIRUBIN - TOTAL 0.12 mg/dL (0.2-1.3); CALC OSMOLALITY 279 mosm/kg (275-300); CALCIUM 8.4 mg/dL (8.5-10.1); CARBON DIOXIDE 23.5 mmol/L (21.0-32.0); CHLORIDE - SERUM 107 mmol/L (98-107); CREATININE - SERUM 0.7 mg/dL (0.6-1.3); GLUCOSE 87 mg/dL (74-106); POTASSIUM - SERUM 3.9 mmol/L (3.5-5.1); PROTEIN - SERUM 7.3 g/dL (6.4-8.2); SODIUM 142 mmol/L (136-145); UREA NITROGEN 7 mg/dL (7-18); eGFR NON AFRICAN AMERICAN > 90 mL/min (90-120)
[2018-11-12 15:09] LABS: MAGNESIUM - SERUM 2.3 mg/dL (1.8-2.4)
[2018-11-12 17:52] LABS: UDS - AMPHET NEGATIVE QUAL (NEGATIVE); UDS - BARB NEGATIVE QUAL (NEGATIVE); UDS - BENZO NEGATIVE QUAL (NEGATIVE); UDS - COCAINE NEGATIVE QUAL (NEGATIVE); UDS - OPIATE NEGATIVE QUAL (NEGATIVE); UDS - PCP NEGATIVE QUAL (NEGATIVE); UDS - THC NEGATIVE QUAL (NEGATIVE)
[2018-11-12 18:09] LABS: APPEARANCE CLEAR (CLEAR); BILIRUBIN NEGATIVE (NEGATIVE); COLOR YELLOW (YELLOW); GLUCOSE NEGATIVE (NEGATIVE); KETONE NEGATIVE (NEGATIVE); NITRITE NEGATIVE (NEGATIVE); PROTEIN NEGATIVE (NEGATIVE); UROBILINOGEN NORMAL (NORMAL)
[2018-11-12 19:26] VITALS: BP 123/79
== END 2018-11-12 19:20 | disposition home or self-care (01) ==
LOC: D.ER 12:29
PROVIDERS: Family Medicine
DX: F10.10 Alcohol abuse, uncomplicated (principal)

== ENCOUNTER 2018-11-15 21:06 | Emergency (ER) | payer SELFPAY ==
[~2018-11-15] VITALS: Ht 172.7 cm; Wt 81.6 kg
[2018-11-15 21:09] VITALS: Ht 172.7 cm; Wt 81.6 kg
[2018-11-15 21:36] LABS: BASOPHILS 1.3 % (0-2); EOSINOPHILS 7.1 % (0-7); HEMOGLOBIN 10.4 g/dL (13.5-17.5); IMMATURE GRANULOCYTES 0.2 % (0-5); LYMPHOCYTES 30.4 % (15-50); MCH 24.1 pg (26.0-34.0); MCHC 31.5 g/dL (31.0-37.0); MCV 76.6 fL (80.0-100.0); MONOCYTES 7.1 % (2-11); NEUTROPHILS 53.9 % (40-80); PLATELET COUNT 307 10x3/uL (130-400); RBC 4.31 10x6/uL (4.20-6.10); RDW 26.4 % (11.5-14.5); WBC 5.4 10x3/uL (4.8-10.8)
[2018-11-15 21:46] LABS: ALBUMIN 3.3 g/dL (3.4-5.0); ALKALINE PHOSPHATASE 102 U/L (46-116); ALT (SGPT) 21 U/L (10-68); BILIRUBIN - TOTAL 0.16 mg/dL (0.2-1.3); CALC OSMOLALITY 275 mosm/kg (275-300); CALCIUM 8.7 mg/dL (8.5-10.1); CARBON DIOXIDE 21.2 mmol/L (21.0-32.0); CHLORIDE - SERUM 106 mmol/L (98-107); CREATININE - SERUM 0.7 mg/dL (0.6-1.3); GLUCOSE 79 mg/dL (74-106); MAGNESIUM - SERUM 2.2 mg/dL (1.8-2.4); POTASSIUM - SERUM 3.3 mmol/L (3.5-5.1); PROTEIN - SERUM 6.9 g/dL (6.4-8.2); SODIUM 140 mmol/L (136-145); UREA NITROGEN 7 mg/dL (7-18); eGFR NON AFRICAN AMERICAN > 90 mL/min (90-120)
[2018-11-15 22:51] LABS: APPEARANCE CLEAR (CLEAR); BILIRUBIN NEGATIVE (NEGATIVE); COLOR YELLOW (YELLOW); GLUCOSE NEGATIVE (NEGATIVE); KETONE NEGATIVE (NEGATIVE); NITRITE NEGATIVE (NEGATIVE); PROTEIN NEGATIVE (NEGATIVE); UROBILINOGEN NORMAL (NORMAL)
[2018-11-15 22:58] LABS: UDS - AMPHET NEGATIVE QUAL (NEGATIVE); UDS - BARB NEGATIVE QUAL (NEGATIVE); UDS - BENZO NEGATIVE QUAL (NEGATIVE); UDS - COCAINE NEGATIVE QUAL (NEGATIVE); UDS - OPIATE NEGATIVE QUAL (NEGATIVE); UDS - PCP NEGATIVE QUAL (NEGATIVE); UDS - THC NEGATIVE QUAL (NEGATIVE)
[2018-11-16 07:53] VITALS: BP 105/69
== END 2018-11-16 13:37 ==
LOC: D.ER 21:06
PROVIDERS: Family Medicine
DX: F32.9 Major depressive disorder, single episode, unspecified (principal)

== ENCOUNTER 2018-12-12 18:35 | Emergency (ER) | payer MEDICAID ==
[~2018-12-12] VITALS: Ht 172.7 cm; Wt 81.8 kg
[2018-12-12 18:39] VITALS: Ht 172.7 cm; Wt 81.8 kg
[2018-12-12 20:10] LABS: BASOPHILS 1.8 % (0-2); EOSINOPHILS 0.6 % (0-7); HEMATOCRIT 45.4 % (42.0-54.0); HEMOGLOBIN 15.2 g/dL (13.5-17.5); IMMATURE GRANULOCYTES 0.1 % (0-5); LYMPHOCYTES 39.5 % (15-50); MCH 26.4 pg (26.0-34.0); MCHC 33.5 g/dL (31.0-37.0); MEAN PLATELET VOLUME 9.8 fL (7.4-10.4); MONOCYTES 9.1 % (2-11); NEUTROPHILS 48.9 % (40-80); PLATELET COUNT 325 10x3/uL (130-400); RBC 5.75 10x6/uL (4.20-6.10); WBC 6.8 10x3/uL (4.8-10.8)
[2018-12-12 20:19] LABS: ALBUMIN 3.8 g/dL (3.4-5.0); ALKALINE PHOSPHATASE 106 U/L (46-116); ALT (SGPT) 106 U/L (10-68); BILIRUBIN - TOTAL 0.24 mg/dL (0.2-1.3); CALCIUM 8.8 mg/dL (8.5-10.1); CARBON DIOXIDE 20.4 mmol/L (21.0-32.0); CHLORIDE - SERUM 104 mmol/L (98-107); CREATININE - SERUM 0.9 mg/dL (0.6-1.3); POTASSIUM - SERUM 4.1 mmol/L (3.5-5.1); PROTEIN - SERUM 8.3 g/dL (6.4-8.2); SODIUM 142 mmol/L (136-145); UREA NITROGEN 19 mg/dL (7-18); eGFR NON AFRICAN AMERICAN > 90 mL/min (90-120)
[2018-12-12 20:21] LABS: MAGNESIUM - SERUM 2.3 mg/dL (1.8-2.4)
[2018-12-12 20:22] LABS: CALC OSMOLALITY 282 mosm/kg (275-300); GLUCOSE 70 mg/dL (74-106)
[2018-12-12 20:25] LABS: APPEARANCE CLEAR (CLEAR); BILIRUBIN NEGATIVE (NEGATIVE); COLOR YELLOW (YELLOW); GLUCOSE NEGATIVE (NEGATIVE); KETONE NEGATIVE (NEGATIVE); NITRITE NEGATIVE (NEGATIVE); PROTEIN NEGATIVE (NEGATIVE); SPECIFIC GRAVITY 1.015 (1.005-1.020); UDS - AMPHET NEGATIVE QUAL (NEGATIVE); UDS - BARB NEGATIVE QUAL (NEGATIVE); UDS - BENZO NEGATIVE QUAL (NEGATIVE); UDS - COCAINE NEGATIVE QUAL (NEGATIVE); UDS - OPIATE NEGATIVE QUAL (NEGATIVE); UDS - PCP NEGATIVE QUAL (NEGATIVE); UDS - THC NEGATIVE QUAL (NEGATIVE); UROBILINOGEN NORMAL (NORMAL)
[2018-12-12 20:26] LABS: BACTERIA FEW /hpf (NONE SEEN); RED CELLS - URINE 0-5 /hpf (0-5); WHITE CELLS - URINE OCC /hpf (0-5)
--- NOTE | 2018-12-12 21:38 | NUR ---
DR WILKES NOTIFIED AND 1:1 SITTER OBSERVATION ORDERED. SITTER AT BEDSIDE, NOTIFIED CHARGE NURSE AND ATTENDING IN REGARDS TO ASSESSMENT FINDINGS, RESOURCES GIVEN TO PT AND SAFETY PLAN INITIATED, PRINTED 15 MINUTE OBSERVATION PAPERWORK FOR SITTER.
[2018-12-13 07:35] VITALS: BP 158/76
== END 2018-12-13 16:30 | disposition home or self-care (01) ==
LOC: D.ER 18:35
PROVIDERS: Emergency Medicine
DX: F32.9 Major depressive disorder, single episode, unspecified (principal); F41.9 Anxiety disorder, unspecified; F43.21 Adjustment disorder with depressed mood; T14.91XA Suicide attempt, initial encounter; T65.92XA Toxic effect of unspecified substance, intentional self-harm, initial encounter; Y92.019 Unspecified place in single-family (private) house as the place of occurrence of the external cause

== ENCOUNTER 2019-01-03 19:56 | Observation (INO) | payer MEDICAID ==
[2019-01-03] VITALS (10 sets, daily range): BP systolic 102–117; BP diastolic 61–73
[~2019-01-03] VITALS: Ht 172.7 cm; Wt 85.1 kg
--- NOTE | 2019-01-03 20:04 | NUR ---
PT PLACED IN SAFE ROOM, BELONGINGS REMOVED AND GIVEN TO PT , PT PLACED IN PAPER SCRUBS AT THIS TIME. PT 1:1 UNTIL [facility] PERSONNEL ARRIVE FOR EVALUATION
--- NOTE | 2019-01-03 20:36 | NUR ---
The patient rates high on his suicidal assessment and he will require a 1:1 observation.
--- NOTE | 2019-01-03 20:45 | NUR ---
PSYCH AT BEDSIDE FOR ASSESSMENT
[2019-01-03 21:28] LABS: APPEARANCE CLEAR (CLEAR); BILIRUBIN NEGATIVE (NEGATIVE); COLOR STRAW (YELLOW); GLUCOSE NEGATIVE (NEGATIVE); KETONE NEGATIVE (NEGATIVE); NITRITE NEGATIVE (NEGATIVE); PROTEIN NEGATIVE (NEGATIVE); SPECIFIC GRAVITY 1.015 (1.005-1.020); UROBILINOGEN NORMAL (NORMAL)
[2019-01-03 21:29] LABS: BASOPHILS 2.2 % (0-2); EOSINOPHILS 10.1 % (0-7); HEMATOCRIT 34.6 % (42.0-54.0); HEMOGLOBIN 11.4 g/dL (13.5-17.5); LYMPHOCYTES 39.3 % (15-50); MCH 26.5 pg (26.0-34.0); MCHC 32.9 g/dL (31.0-37.0); MCV 80.3 fL (80.0-100.0); MEAN PLATELET VOLUME 9.3 fL (7.4-10.4); MONOCYTES 8.8 % (2-11); NEUTROPHILS 39.6 % (40-80); RBC 4.31 10x6/uL (4.20-6.10); RDW 22.4 % (11.5-14.5); WBC 4.1 10x3/uL (4.8-10.8)
[2019-01-03 21:30] LABS: PLATELET COUNT 223 10x3/uL (130-400)
--- NOTE | 2019-01-03 21:30 | NUR ---
PT RESTING EYES CLOSED AT THIS TIME. FAMILY AT BEDSIDE.
[2019-01-03 21:38] LABS: UDS - AMPHET NEGATIVE QUAL (NEGATIVE); UDS - BARB NEGATIVE QUAL (NEGATIVE); UDS - BENZO NEGATIVE QUAL (NEGATIVE); UDS - COCAINE NEGATIVE QUAL (NEGATIVE); UDS - OPIATE NEGATIVE QUAL (NEGATIVE); UDS - PCP NEGATIVE QUAL (NEGATIVE); UDS - THC NEGATIVE QUAL (NEGATIVE)
[2019-01-03 21:42] LABS: ALBUMIN 3.7 g/dL (3.4-5.0); ALKALINE PHOSPHATASE 95 U/L (46-116); ALT (SGPT) 35 U/L (10-68); BILIRUBIN - TOTAL 0.14 mg/dL (0.2-1.3); CALC OSMOLALITY 280 mosm/kg (275-300); CALCIUM 8.6 mg/dL (8.5-10.1); CARBON DIOXIDE 23.6 mmol/L (21.0-32.0); CHLORIDE - SERUM 107 mmol/L (98-107); CREATININE - SERUM 0.9 mg/dL (0.6-1.3); GLUCOSE 83 mg/dL (74-106); PROTEIN - SERUM 7.4 g/dL (6.4-8.2); SODIUM 141 mmol/L (136-145); UREA NITROGEN 15 mg/dL (7-18); eGFR NON AFRICAN AMERICAN > 90 mL/min (90-120)
[2019-01-03 21:52] LABS: MAGNESIUM - SERUM 2.1 mg/dL (1.8-2.4); THYROID STIMULATING HORMONE 0.12 uIU/mL (0.36-3.74)
--- NOTE | 2019-01-03 22:30 | NUR ---
POISON CONTROL CALLED STATES TO GIVE SYMPTOMATIC AND SUPPORTIVE CARE MD INFORMED.
[2019-01-04] VITALS (23 sets, daily range): BP systolic 94–132; BP diastolic 47–86; Ht 172.7 cm; Wt 85.1 kg
--- NOTE | 2019-01-04 | NUR ---
PT FAMILY LEAVING WILL BE BACK LATER TODAY PT IS TEARFUL AT THIS TIME. PT RESTING EYES CLOSED RESP EVEN AND UNLABORED.
--- NOTE | 2019-01-04 01:17 | NUR ---
RECIEVED FROM THE ED VIA STRETCHER. AROUSES TO VERBAL STIMULI. ORIENTED TO PERSON, PLACE, TIME AND SITUATION. RT FA PIV, SITE WITHOUT REDNESS OR EDEMA WITH BANANA BAG @ 125CC/HR VIA PUMP. SR ON THE MONITOR. DENIES ANY NEEDS AT THIS TIME.
--- NOTE | 2019-01-04 01:20 | NUR ---
SITTER AT BEDSIDE.
--- NOTE | 2019-01-04 02:34 | NUR ---
POISON CONTROL CALLED FOR AN UPDATE. WILL CONT TO MONITOR.
--- NOTE | 2019-01-04 04:02 | NUR ---
EYES CLOSED, RESP EVEN AND UNLABORED. SR ON THE MONITOR. SITTER AT BEDSIDE.
--- NOTE | 2019-01-04 05:59 | NUR ---
VS STABLE. NO VISUAL CUES OF DISTRESS NOTED. WILL MONITOR.
--- NOTE | 2019-01-04 06:21 | NUR ---
REPOSITIONED IN BED. SR ON THE MONITOR. DENIES ANY PAIN OR NEEDS. SR ON THE MONITOR.
--- NOTE | 2019-01-04 09:50 | NUR ---
PT DENIES SI AND STATED HE WAS ONLY TRYING TO GET SOME SLEEP AND TOOK TOO MANY PILLS. PT IS VERY FLAT AND POOR EYE CONTACT. SITTER AT BEDSIDE.
--- NOTE | 2019-01-04 15:51 | NUR ---
0700 AWAKE IN BED SITTER REMAINS A BEDSIDE ASSESSMENT COMPLETE NO DISTRESS NOTED
--- NOTE | 2019-01-04 15:53 | NUR ---
0900 IN BED WATCHING TV VOICES NO COMPLAINTS
--- NOTE | 2019-01-04 15:54 | NUR ---
1100 REGULAR DIET TRAY ORDERED AND GIVEN APPETITE GOOD
--- NOTE | 2019-01-04 15:55 | NUR ---
1300 UP TO BEDSIDE COMMODE VOIDED 1000ML URINE
--- NOTE | 2019-01-04 15:59 | NUR ---
1500 RESTING QUIETLY NO DISTRESS NOTED SITTER REMAINS AT BEDSIDE
--- NOTE | 2019-01-04 16:44 | MORECARE ---
CASE MANAGEMENT DISCHARGE SUMMARY PATIENT: MO OVIEDO UNIT: [id number] ADM DATE: 01/03/19 AGE: 53 : 65 SEX: M ROOM/BED: D.2312 AUTHOR: LALO BADILLO PHYSICIAN: REFERRING PHYSICIAN: HARDIK SANCHEZ MD DATE OF SERVICE: 01/04/19 Discharge Plan Patient Name: MO OVIEDO [facility] [facility] 1965 Planned Disposition: Psych facility Anticipated Discharge Date: Discharge Date: Expected LOS: Initial Reviewer: [email or web address] Initial Review Date: 01/04/2019 Generated: 01/04/19 5:43 pm Comments DCP- Discharge Planning Updated by [email or web address]: Marla Burger on 01/04/19 3:[address] Patient Name: MO OVIEDO Admission Status: ER Accout number: [id number] Admission Date: 01-03-2019 : 1965 Admission Diagnosis: Attending: HARDIK SANCHEZ Current LOS: 1 Anticipated DC Date: Planned Disposition: Psych facility Primary Insurance: MEDICAID [place] Discharge Planning Comments: PLAN IS FOR PATIENT TO GO TO INPATIENT PSYCH FACILITY UPON DISCHARGE. PATIENT AGREES TO PYCH PLACEMENT. CM CALLED AND SENT RECORDS TO TRANSFER CENTER FOR PLACEMENT. Traffic Personnel Supervisor: Marla Burger External Providers External Provider: [facility]TRANSF[facility] Next Contact Date: Service Request Date: Service Type: Resolution: Reviewer: Comments: Patient Name: MO OVIEDO Page 53618 at 1644 All edits/amendments must be made on the electronic document DICTATION DATE: 01/04/19 164 SOCIAL WELFARE ADMINISTRATOR: WESTON 01/04/191642 RPT#: [id number] DC DATE: STATUS: ADM IN [facility] [address] [place] [address] END OF REPORT
--- NOTE | 2019-01-04 18:52 | NUR ---
1700 DR NATH ROUNDED ON PATIENT. WILL CONTINUE LINE OF SITE SITTER TO CHART EVERY 15 MIN[address]ES. DISCHARGE WRITTEN BY DR SANCHEZ. TRANSFER CENTER NOTIFIED. PLAN FOR INPATIENT PS FACILITY
--- NOTE | 2019-01-04 19:55 | NUR ---
EVENING ROUNDS COMPLETED. REPORT RECEIVED. PT LYING ON LEFT SIDE IN BED WITH EYES OPEN, RR EVEN AND UNLABORED. ORDERED FLUIDS INFUSING ORDERED THROUGH LFA PIV. SITTER AT BEDSIDE. NO S/S OF DISTRESS NOTED. VITALS STABLE. BED IN LOW POSITION. CALL LIGHT IN REACH. WILL CTM.
--- NOTE | 2019-01-04 22:00 | NUR ---
PT LYING IN BED WITH EYES CLOSED, RR EVEN AND UNLABORED. BED IN LOW POSITION. EVENING MEDICATIONS ADMINISTERED. NO S/S OF DISTRESS NOTED. SITTER AT BEDSIDE. WILL CTM.
[2019-01-05] VITALS (15 sets, daily range): BP systolic 104–149; BP diastolic 59–85
--- NOTE | 2019-01-05 | NUR ---
PT LYING IN BED WITH EYES CLOSED, RR EVEN AND UNLABORED. SITTER AT BEDSIDE. NO S/S OF DISTRESS NOTED. BED IN LOW POSITION. WILL CTM.
--- NOTE | 2019-01-05 01:10 | NUR ---
PT RESTING IN BED WITH EYES CLOSED, SITTER IN ROOM, CONT POC.
--- NOTE | 2019-01-05 02:00 | NUR ---
PT LYING ON LEFT SIDE IN BED WITH EYES CLOSED, RR EVEN AND UNLABORED. NO S/S OF DISTRESS NOTED. SITTER AT BEDSIDE. WILL CTM.
--- NOTE | 2019-01-05 03:00 | NUR ---
PT SITTING IN BED WITH EYES CLOSED, RR EVEN AND UNLABORED. NO S/S OF DISTRESS NOTED. SITTER AT BEDSIDE. WILL CTM.
--- NOTE | 2019-01-05 05:22 | NUR ---
PT SITTING UP IN BED WITH EYES OPEN, WATCHING TV. RR EVEN AND UNLABORED. SITTER AT BEDSIDE. NO S/S OF DISTRESS NOTED. WILL CTM.
--- NOTE | 2019-01-05 06:16 | NUR ---
MORNING MEDICATIONS UNABLE TO BE ADMINISTERED DUE TO ISSUES WITH PYXIS SYSTEM. CHARGE NURSE MADE AWARE OF SITUATION. WILL NOTIFY ONCOMING NURSE.
--- NOTE | 2019-01-05 07:06 | NUR ---
TRANSFER CENTER CALLED STATES THEY HAVE SENT HIS IMFORMATION OUT TO FACILITIES THAT HAVE BEDS AVAILABLE. WILL LET US KNOW WHEN THEY HEAR FROM THEM.
--- NOTE | 2019-01-05 09:00 | NUR ---
[facility] IN [place], REQUESTING ALCOHOL LEVEL BE REPEATED. THEY HAVE A BED AVAILABLE. PATIENT NOTIFIED OF POSSIBLE TRANSFER AFTER LAB. NAPPPING IN BED NO DISTRESS. DENIES PAIN IV PATENT WITHOUT REDNESS OR SWELLING.
--- NOTE | 2019-01-05 11:00 | NUR ---
PATIENT NOTIFIED OF ACCEPTANCES TO [facility] [place]. HAVE TO WAIT ON MD TO SIGN PAPERWORK BEFORE HE CAN BE TRANSFERED. DR. SANCHEZ NOTIFIED OF NEED TO SIGN PAPER WORK. PATIENT AWAKE TALKING WITH SITTER, NO DISTRESS. CALM AND COOPERATIVE. WATCHING TV AT TIMES. PO MEDS TAKEN WITHOUT DIFFICULTY. UP TO BSC NEEDED. REVIEWED PERSONAL ITEMS. ONE SHIRT, ONE PAIR OF SHORTS AND SILVER LOOKING [place] BAND. STATES HE HAS DENTURES AND GLASSES BUT HE DOES NOT KNOW WHERE THEY ARE. BRIMMING MACHINE OPERATOR NOTIFIED OF PENDING TRANSFER. CONSENT FOR TRANSFER SIGNED BY PATIENT. NO QUESTIONS ASKED.
--- NOTE | 2019-01-05 11:54 | CN ---
PATIENT NAME:MO OVIEDO MEDICAL RECORD: [id number] : 65 LOCATION:[id number] ADMIT DATE: 01/03/19 ACCOUNT: [id number] CONSULTING PHYSICIAN: GLORIA SNEED MD REFERRING PHYSICIAN: HARDIK SANCHEZ MD DATE OF CONSULTATION: 01/04/2019 IDENTIFYING DATA: The patient is 53 years old and he is admitted to the hospital on a voluntary basis secondary to overdose. CHIEF COMPLAINT: None. HISTORY OF PRESENT ILLNESS: The patient was here a month ago, he had overdosed on Klonopin and vodka. It was recommended that he go to an inpatient facility. After a week, none could be found. He was just discharged home since he was no longer having suicidal thoughts. At that time, he was no longer suicidal, was not going to hurt himself and was reasonably stable. He now returns having become intoxicated. He says he took Klonopin, but his urine drug screen is negative for it. He also says he took Zoloft. Apparently, he tried to jump out of a car on the way to the Emergency Room and made suicidal statements to staff. He is now sober, says he does not want to kill himself and endorses numerous neurovegetative depressive symptoms. MENTAL STATUS EXAMINATION: The patient is awake, alert and oriented to person, place, time and situation. Mood is flat. Affect is constricted. Thought processes are circumstantial. Memory, concentration, and abstraction abilities are moderately impaired and he denies any intent to harm himself or others as well as psychotic symptoms. ASSESSMENT: 1. Alcohol abuse. 2. Major depression. PLAN: The patient at this time presents twice in 2 months to the hospital for an overdose of pills and alcohol. I say pills because on both occasions, he claimed to have taken Klonopin, but his urine drug screen is negative. He clearly is severely depressed. I have spoken with him on both occasions about the importance of not drinking. He is blaming the [facility] for not having him on the right medicines. I do not believe he needs to be 1:1 with a sitter, but he should have q.15 minute observations and be in visual line of sight until placed. He does need to be placed in adult inpatient psychiatric care from here. TRANSINT:[id number] Voice Confirmation ID: [id number] DOCUMENT ID: [id number] GLORIA SNEED MD at 1154 CC: [id number] DICTATION DATE: 01/04/19 1615 AREA SUPERVISOR: 01/04/19 2252 ADM IN [place] [id number] [place] [id number]
--- NOTE | 2019-01-05 12:18 | MORECARE ---
CASE MANAGEMENT DISCHARGE SUMMARY PATIENT: MO OVIEDO UNIT: [id number] ADM DATE: 01/03/19 AGE: 53 : 65 SEX: M ROOM/BED: D.2312 AUTHOR: LALO BADILLO PHYSICIAN: REFERRING PHYSICIAN: HARDIK SANCHEZ MD DATE OF SERVICE: 01/05/19 Discharge Plan Patient Name: MO OVIEDO Facility: [facility] : 1965 Planned Disposition: Psych facility Anticipated Discharge Date: Discharge Date: Expected LOS: Initial Reviewer: [email or web address] Initial Review Date: 01/04/2019 Generated: 01/05/19 1:18 pm Comments DCP- Discharge Planning Updated by [email or web address]: Kandace Wilks on 01/05/19 11:[address] PATIENT HAS BEEN ACCEPTED TO [facility] INPATIENT PSYCH UNIT. CM SPOKE W/ PRIMARY NURSE, CRISTAL. PCS FORM COMPLETED, TRANSFER FORM AWAITING DR SANCHEZ'S SIGNATURE AND NURSE TRANSFER FORM COMPLETED. CHART HAS BEEN COPIED. NURSING YEAST TENDER WILL SIGN OFF WHEN FORMS ARE COMPLETED. NURSE TO CALL REPORT. DCP- Discharge Planning Updated by [id number]: Marla Burger on 01/04/19 3:[address] Patient Name: MO OVIEDO Admission Status: ER Accout number: [id number] Admission Date: 01-03-2019 : 1965 Admission Diagnosis: Attending: HARDIK SANCHEZ Current LOS: 1 Anticipated DC Date: Planned Disposition: Psych facility Primary Insurance: MEDICAID [place] Discharge Planning Comments: PLAN IS FOR PATIENT TO GO TO INPATIENT PSYCH FACILITY UPON DISCHARGE. PATIENT AGREES TO PYCH PLACEMENT. CM CALLED AND SENT RECORDS TO TRANSFER CENTER FOR PLACEMENT. Sill Worker: Marla Burger External Providers External Provider: [facility]TRANSFER CALL [facility] Next Contact Date: Service Request Date: Service Type: Resolution: Reviewer: Comments: Last DP export: 01/04/19 3:44 p Patient Name: MO OVIEDO Page 01314 at 1218 All edits/amendments must be made on the electronic document DICTATION DATE: 01/05/19 1218 DIRECTOR OF INTELLIGENCE: WESTON 01/05/198 RPT#: [id number] DC DATE: STATUS: ADM IN [facility] [address] [place] [address] END OF REPORT
--- NOTE | 2019-01-05 12:24 | NUR ---
LUNCH TRAY SERVED.
--- NOTE | 2019-01-05 13:30 | NUR ---
ATE 100% OF LUNCH. TALKING WITH SITTER. NO DISTRESS. DENIES PAIN. WAITING ON TRANSPORT
--- NOTE | 2019-01-05 14:43 | NUR ---
NO CHANGE NO DISTRESS. STILL WAITING ON TRANSPORT. TALKING WITH SITTER, WATCHING TV. CALM AND COOPERATIVE
--- NOTE | 2019-01-05 16:30 | NUR ---
ATE 100% OF SUPER TRAY. STILL WAITING ON [employer]. CALM AND COOPERATIVE. WATCHING TV. PLEASANT NO DISTRESS
--- NOTE | 2019-01-05 17:27 | NUR ---
NO CHANGE CALM AND COOPERATIVE. NO DISTRESS
--- NOTE | 2019-01-05 17:50 | NUR ---
CONTINENT BOWEL MOVEMENT NOTED AT THIS TIME, LARGE LOOSE LIGHT BROWN. PT PROVIDED OWN FELIBERTO CARE. UP IN BED WATCHING TV. NO ACUTE DISTRESS NOTED. WILL CONTINUE PLAN OF CARE.
--- NOTE | 2019-01-05 18:20 | NUR ---
LEFT AT THIS TIME TO TRANSFER TO INPATIENT PSYCH AT [facility]. LEFT WITH TRANSFER PAPERWORK AND ALL DISCHARGE PAPERWORK WITH AMBULANCE. NO ACUTE DISTRESS NOTED. VSS. NO FURTHER ACTIONS.
--- NOTE | 2019-01-07 09:45 | MORECARE ---
CASE MANAGEMENT DISCHARGE SUMMARY PATIENT: MO OVIEDO UNIT: [id number] ADM DATE: 01/03/19 AGE: 53 : 65 SEX: M ROOM/BED: D.2312 AUTHOR: LALO BADILLO PHYSICIAN: REFERRING PHYSICIAN: HARDIK SANCHEZ MD DATE OF SERVICE: 01/07/19 Discharge Plan Patient Name: MO OVIEDO Facility: [facility] : 1965 Planned Disposition: Psych facility Anticipated Discharge Date: Discharge Date: 01/05/2019 Expected LOS: Initial Reviewer: [email or web address] Initial Review Date: 01/04/2019 Generated: 01/07/19 10:45 am Comments DCP- Discharge Planning Updated by [id number]: Kandace Wilks on 01/05/19 11:[address] PATIENT HAS BEEN ACCEPTED TO [facility] INPATIENT PSYCH UNIT. CM SPOKE W/ PRIMARY NURSE, CRISTAL. PCS FORM COMPLETED, TRANSFER FORM AWAITING DR SANCHEZ'S SIGNATURE AND NURSE TRANSFER FORM COMPLETED. CHART HAS BEEN COPIED. NURSING CHANNEL CEMENTER INSOLE MACHINE WILL SIGN OFF WHEN FORMS ARE COMPLETED. NURSE TO CALL REPORT. DCP- Discharge Planning Updated by [id number]: Marla Burger on 01/04/19 3:[address] Patient Name: MO OVIEDO Admission Status: ER Accout number: [id number] Admission Date: 01-03-2019 : 1965 Admission Diagnosis: Attending: HARDIK SANCHEZ Current LOS: 1 Anticipated DC Date: Planned Disposition: Psych facility Primary Insurance: MEDICAID [place] Discharge Planning Comments: PLAN IS FOR PATIENT TO GO TO INPATIENT PSYCH FACILITY UPON DISCHARGE. PATIENT AGREES TO PYCH PLACEMENT. CM CALLED AND SENT RECORDS TO TRANSFER CENTER FOR PLACEMENT. Canvas Baster: Marla Burger Last DP export: 01/05/19 11:18 a Patient Name: MO OVIEDO Page 80318 at 0945 All edits/amendments must be made on the electronic document DICTATION DATE: 01/07/1944 BATCH ATTENDANT: WESTON 01/07/1944 RPT#: [id number] DC DATE:01/05/19 STATUS: DIS IN [facility] [address] [place] [address] END OF REPORT
== END 2019-01-05 18:22 ==
LOC: D.ER 19:56 → D.EDHOLD 21:47 → OBSVTIME 01-04 00:29 → D.EDHOLD 01-04 00:29 → D.ICU 01-04 00:29 → D.ER 01-04 00:29 → D.ICU 01-04 16:02
PROVIDERS: Emergency Medicine; ADMIT Internal Medicine Nephrology; ATTEND Internal Medicine Nephrology
DX: T42.4X2A Poisoning by benzodiazepines, intentional self-harm, initial encounter (principal); R45.851 Suicidal ideations; F10.129 Alcohol abuse with intoxication, unspecified; F17.203 Nicotine dependence unspecified, with withdrawal; K59.09 Other constipation; D50.9 Iron deficiency anemia, unspecified; F32.9 Major depressive disorder, single episode, unspecified